=== PATIENT | male | born 1960 | race African-American/Black ===

== ENCOUNTER 2022-10-11 12:21 | Emergency (ER) | payer SELFPAY ==
[~2022-10-11] VITALS: Ht 182.9 cm; Wt 82.0 kg
[2022-10-11 12:24] VITALS: BP 170/70
[2022-10-11] MEDS ORDERED: DEXTROSE 50% WATER 50ML SYRINGE IV ONE (12:30)
== END 2022-10-11 13:45 | disposition left against medical advice (07) ==
LOC: ER 12:21
DX: E11.649 Type 2 diabetes mellitus with hypoglycemia without coma (principal); R41.82 Altered mental status, unspecified; T38.3X5A Adverse effect of insulin and oral hypoglycemic [antidiabetic] drugs, initial encounter; Z79.4 Long term (current) use of insulin; V49.49XA Driver injured in collision with other motor vehicles in traffic accident, initial encounter; Y93.89 Activity, other specified; Y92.488 Other paved roadways as the place of occurrence of the external cause
CPT/HCPCS: 82962; 99283